=== PATIENT | female | born 2005 | race Caucasian/White ===

== ENCOUNTER 2025-01-23 16:44 | Emergency (ER) | payer BC ==
[2025-01-23 17:31] LABS: Hematocrit 39.6 % (36.0-47.0); Hemoglobin 13.0 g/dL (12.0-16.0); Mean Corpuscular Hemoglobin 28.5 pg (27.0-31.0); Mean Corpuscular Volume 87.1 fl (78.0-98.0); Platelet Count 298 10x3/uL (130-400); Red Blood Cell (RBC) Count 4.55 mill/uL (4.20-5.40); White Blood Cell (WBC) Count 8.0 10x3/uL (4.8-10.8)
[2025-01-23 17:34] LABS: BHCG - Serum Negative (NEGATIVE); Pregs Control Background? CLEAR/WHITE (CLR/WHITE); Pregs Control Bar Appear? YES (CONTROL BAR)
[2025-01-23 17:39] LABS: ALT (SGPT) 47 U/L (Less than 34); AST (SGOT) 33 U/L (11-34); Albumin 4.2 g/dL (3.1-4.5); Alkaline Phosphatase 70 U/L (40-110); Anion Gap 18 mmol/L (10-20); BUN (Urea Nitrogen) 13 mg/dL (7.0-18.7); Bilirubin, Total 0.3 mg/dL (0.3-1.2); Calc. Creatinine Clearance 0 mL/min (70-130); Calcium 9.3 mg/dL (7.8-10.44); Carbon Dioxide 19 mmol/L (22-29); Chloride 109 mmol/L (98-107); Globulin 3.6 g/dL (2.4-3.5); Glucose 107 mg/dL (70-105); Lipase 16 U/L (8-78); Potassium 4.1 mmol/L (3.5-5.1); Sodium 142 mmol/L (136-145)
[2025-01-23 17:45] LABS: MDiff Complete? YES; Manual Diff?? YES
[2025-01-23 17:46] LABS: Platelet Adequacy Comment Appears Adequate
== END 2025-01-23 17:50 | disposition home or self-care (01) ==
LOC: MADERS 16:44
DX: R10.13 Epigastric pain (principal); R11.2 Nausea with vomiting, unspecified; E66.9 Obesity, unspecified; F17.290 Nicotine dependence, other tobacco product, uncomplicated
CPT/HCPCS: 36415; 80053; 83690; 84703; 85025; 99284; Q0162

== ENCOUNTER 2025-02-20 17:44 | Emergency (ER) | payer BC ==
[2025-02-20] MEDS ORDERED: predniSONE 10 MG TAB ONE (18:13)
[2025-02-20] MEDS ORDERED: predniSONE 20 MG TAB ONE (18:13)
== END 2025-02-20 18:29 | disposition home or self-care (01) ==
LOC: MADERS 17:44
DX: L29.9 Pruritus, unspecified (principal); E66.9 Obesity, unspecified; F17.290 Nicotine dependence, other tobacco product, uncomplicated
CPT/HCPCS: J7512

== ENCOUNTER 2025-03-30 16:27 | Emergency (ER) | payer BC | END 2025-03-30 17:22 | disposition home or self-care (01) | LOC: MADERS 16:27 | DX: R11.2 Nausea with vomiting, unspecified (principal); R10.13 Epigastric pain; R19.7 Diarrhea, unspecified; E66.9 Obesity, unspecified; F17.290 Nicotine dependence, other tobacco product, uncomplicated | CPT/HCPCS: 99283; Q0162 ==